=== PATIENT | male | born 1950 | race Caucasian/White ===

== ENCOUNTER 2016-11-07 14:45 | Emergency (ER) | payer OTHER ==
[~2016-11-07] VITALS: Ht 182.9 cm; Wt 75.5 kg
[~2016-11-07 14:45] MED LIST: DESYREL100 MG PO; ELAVIL25 MG; ELAVIL25 MG PO; NORVASC10 MG PO; PREVACID15 MG; TOPROL XL50 MG PO; VICODIN,LORT1 TABLET PO; WELLBUTRIN XL300 MG; ZESTRIL40 M1 PO
[2016-11-07 15:53] LABS: HEMATOCRIT 37.8 % (38.0-50.0); MCH 30.9 PG (29.0-34.0); MCHC 33.1 G/DL (30.0-36.0); MCV 93.3 FL (86-99); MEAN PLAT.VOLUME 9.4 uM^3 (9.0-12.4); PLATELET COUNT 204 K/uL (156-360); RBC DIS.WIDTH-CV 14.6 % (11.8-14.6); RED BLOOD COUNT 4.05 M/uL (4.00-5.50); WHITE BLOOD COUNT 7.3 K/uL (4.1-10.2)
[2016-11-07 16:06] LABS: CHLORIDE 98 mEq/L (99-109); POTASSIUM 4.8 mEq/L (3.7-5.4); SODIUM 133 mEq/L (136-147)
[2016-11-07 16:07] LABS: GLUCOSE 92 mg/dL (70-99)
[2016-11-07 16:08] LABS: INTER. NORMALIZED RATIO 1.2; PROTHROMBIN TIME 12.7 (9.2-11.2); PTT 38.3 (25-32)
[2016-11-07 16:09] LABS: ANION GAP 10 MEQ/L (2-14)
[2016-11-07 16:11] LABS: GFR ESTIMATE (CALCULATED) > 59 mL/min/
[2016-11-07 16:12] LABS: UREA NITROGEN (BUN) 15 mg/dL (9-23)
[2016-11-07 21:46] VITALS: BP 118/78
== END 2016-11-07 22:01 | disposition home or self-care (01) ==
LOC: EME 14:45
PROVIDERS: Emergency Medicine
DX: S32.301A Unspecified fracture of right ilium, initial encounter for closed fracture (principal); E87.1 Hypo-osmolality and hyponatremia; E87.8 Other disorders of electrolyte and fluid balance, not elsewhere classified; R60.0 Localized edema; W10.9XXA Fall (on) (from) unspecified stairs and steps, initial encounter; I10 Essential (primary) hypertension; K21.9 Gastro-esophageal reflux disease without esophagitis; F17.200 Nicotine dependence, unspecified, uncomplicated; Z85.05 Personal history of malignant neoplasm of liver
CPT/HCPCS: 70450; 71020; 72193; 73110; 73502; 73552; 73560; 73564; 73590; 80048; 85027; 85610; 85730; 93971; 99281; 99285; J2060; J7030